=== PATIENT | male | born 1955 | race Caucasian/White ===

== ENCOUNTER 2020-01-30 07:31 | Day surgery (SDC) | payer BC ==
[~2020-01-30 07:31] MED LIST: Lactated Ringers 1,000 ML IV SCH; Sodium Chloride 0.9% 10 ML Syringe FLUSH PRN
[2020-01-30] MEDS ORDERED: Lidocaine 2% 5 ML SDV INJECT ONE (07:32)
[2020-01-30] MEDS ORDERED: Propofol 200 MG/20 ML SDV IV ONE (07:32)
[2020-01-30] MEDS ORDERED: Simethicone Drops 40 MG/0.6 ML 30 ML Bottle ONE (09:08)
--- NOTE | 2020-01-30 09:32 | PCM.OPNOTE ---
- General Post-Op/Procedure Note Date of Surgery/Procedure: 01/30/20 Operative Procedure(s): egd. c scope Findings: s/p gastric bypass unremarkable normal colonoscopy Pre Op Diagnosis: + FIT. hx of anemia Post-Op Diagnosis: nl exams Anesthesia Technique: MAC Primary Surgeon: Pelon Sherman Anesthesia Provider: Adan Perez Pathology: none Complications: None Condition: Good Free Text/Narrative:: see dictation
--- NOTE | 2020-01-30 14:58 | OR ---
DATE OF OPERATION: 01/30/2020 SURGEON: Pelon Sherman MD PROCEDURES PERFORMED: Esophagogastroduodenoscopy and colonoscopy. PREOPERATIVE DIAGNOSES: History of iron deficiency anemia and epigastric pain. POSTOPERATIVE DIAGNOSES: Normal upper endoscopy and normal colonoscopy with a history of gastric bypass surgery. INDICATIONS FOR PROCEDURE: This is a 64-year-old white male who presented. He was noted to have some iron deficiency anemia, as well as a positive FIT test, had some epigastric discomfort, but this had resolved. He was essentially offered an upper and lower endoscopy as part of his workup for anemia. DESCRIPTION OF OPERATION: After an adequate IV sedation was administered, the bite block was inserted. Flexible endoscope was passed down into the gastric pouch and then down into the [place] limb. The following findings were noted: The [place] limb was unremarkable. Gastric pouch was unremarkable. No evidence of ulceration or other disease process. Esophagus was unremarkable. The scope was removed. Our attention was then turned to the colon. Digital rectal exam was performed. No marked abnormality was noted. Flexible colonoscope was inserted and advanced to the cecum. The prep was excellent. The following findings were noted: Ascending colon, unremarkable. Transverse colon, unremarkable. Descending colon, unremarkable. Sigmoid and rectum, unremarkable. Colon was deflated. Scope was removed. RECOMMENDATIONS: At this point, follow up in a month with his PCP. 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 Otherwise, repeat colonoscopy in 10 years. /[id number] /MODL
== END 2020-01-30 10:08 | disposition home or self-care (01) ==
LOC: FB.SDS 07:31
PROVIDERS: ATTEND Surgery
DX: R10.13 Epigastric pain (principal); R19.5 Other fecal abnormalities; D50.8 Other iron deficiency anemias; E78.2 Mixed hyperlipidemia; E11.9 Type 2 diabetes mellitus without complications; E66.9 Obesity, unspecified; I10 Essential (primary) hypertension; G47.33 Obstructive sleep apnea (adult) (pediatric); Z99.89 Dependence on other enabling machines and devices; Z68.34 Body mass index [BMI] 34.0-34.9, adult; Z98.84 Bariatric surgery status; Z88.6 Allergy status to analgesic agent; Z79.84 Long term (current) use of oral hypoglycemic drugs; Z79.899 Other long term (current) drug therapy
CPT/HCPCS: 43235; 45378; 82962; A9270; J2001; J2704; J7120